=== PATIENT | male | born 1935 | race Caucasian/White ===

== ENCOUNTER → 2019-03-13 | Outpatient (CLI) | payer MEDICARE, BC ==
--- NOTE | 2019-03-13 18:41 | ECHOF ---
Referral Reason:I35.0 MEASUREMENTS -------- HEIGHT: 182.9 cm WEIGHT: 84.8 kg BP: RVIDd: 3.7 cm (< 3.3) IVSd: 1.6 cm (0.6 - 1.1) LVIDd: 5.0 cm (3.9 - 5.3) LVPWd: 1.7 cm (0.6 - 1.1) IVSs: 1.6 cm LVIDs: 3.6 cm LVPWs: 2.0 cm LAESV Index (A-L): 28.02 ml/m Ao Diam: 3.4 cm (2.0 - 3.7) AV Cusp: 1.9 cm (1.5 - 2.6) LA Diam: 3.8 cm (2.7 - 3.8) MV EXCURSION: 20.824 mm (> 18.000) MV EF SLOPE: 205 mm/s (70 - 150) EPSS: 0.9 cm MV E Homero: 0.69 m/s MV DecT: 293 ms MV A Homero: 0.71 m/s MV E/A Ratio: 0.97 RAP: 5.00 mmHg RVSP: 34.67 mmHg FINDINGS -------- Sinus rhythm with extra systolic beats. This was a technically adequate study. The left ventricular size is normal. There is moderate concentric left ventricular hypertrophy. O verall left ventricular systolic function is normal with, an EF between 55 - 60 %. The diastolic fi lling pattern is normal for the age of the patient 9.12. The right ventricle is mildly enlarged. Normal LA size by volume 22+/-6 ml/m2. The right atrium is mildly enlarged. Interatrial and interventricular septum intact. There is no evidence of aortic regurgitation. There is no evidence of aortic stenosis. Mild mitral annular calcification present. There is trace mitral regurgitation. Mild tricuspid regurgitation present. There is no evidence of pulmonary hypertension. The right v entricular systolic pressure, as measured by Doppler, is 34.67mmHg. There is no pulmonic regurgitation present. The aortic root size is normal. The inferior vena cava is mildly dilated. There is no pericardial effusion. CONCLUSIONS -------- 1. Sinus rhythm with extra systolic beats. 2. This was a technically adequate study. 3. The left ventricular size is normal. 4. There is moderate concentric left ventricular hypertrophy. 5. Overall left ventricular systolic function is normal with, an EF between 55 - 60 %. 6. The diastolic filling pattern is normal for the age of the patient 9.12 7. The right ventricle is mildly enlarged. 8. Normal LA size by volume 22+/-6 ml/m2. 9. The right atrium is mildly enlarged. 10. Interatrial and interventricular septum intact. 11. There is no evidence of aortic regurgitation. 12. There is no evidence of aortic stenosis. 13. Mild mitral annular calcification present. 14. There is trace mitral regurgitation. 15. Mild tricuspid regurgitation present. 16. There is no evidence of pulmonary hypertension. 17. The right ventricular systolic pressure, as measured by Doppler, is 34.67mmHg. 18. There is no pulmonic regurgitation present. 19. The aortic root size is normal. 20. The inferior vena cava is mildly dilated. 21. There is no pericardial effusion. CLEANING MATRON: Gabrielle Collier RDCS
== END ==
LOC: RADECHMAIN 12:41
PROVIDERS: ATTEND Internal Medicine
DX: I07.1 Rheumatic tricuspid insufficiency (principal); I70.8 Atherosclerosis of other arteries
CPT/HCPCS: 93306

== ENCOUNTER → 2022-01-22 | Outpatient (CLI) | payer MEDICARE ==
[2022-01-22 10:24] LABS: INR 0.9 (<1.2); Partial Thromboplastin Time 24.7 sec (22.0-30.0); Prothrombin Time 10.4 sec (9.0-12.0)
[2022-01-22 15:26] LABS: HCT 41.7 % (39.6-50.0); HGB 13.9 g/dL (13.0-17.0); MCH 30.7 pg (27.0-32.0); MCHC 33.3 g/dL (32.0-37.0); MCV 92.1 fL (80.0-97.0); NRBC Per 100 WBC 0 /100 WBCS (0.0-0.0); Platelet Count 213 X 10*3/uL (140-440); RBC 4.53 X 10*6/uL (4.40-5.60); RDW 12.5 % (11.5-14.5); WBC 7.06 X 10*3/uL (4.50-10.00)
[2022-01-22 15:54] LABS: BUN/Creat Ratio 20.54 Ratio (12.00-20.00); Globulin 2.8 g/dL (1.6-3.3)
[2022-01-22 15:55] LABS: African American GFR (CKD) 69.5 (60.0-200.0); Albumin 4.1 g/dL (3.8-4.9); Albumin/Globulin Ratio 1.49 (1.60-3.17); Anion Gap 12.5 mmol/L (10.00-18.00); Calcium 9.2 mg/dL (8.7-10.3); Carbon Dioxide 26.8 mmol/L (20.0-27.5); Potassium 3.9 mmol/L (3.5-5.5); Total Bilirubin 0.9 mg/dL (0.30-1.20); Total Protein 6.9 g/dL (6.2-8.2)
[2022-01-22 19:45] LABS: Appearance,Urine Clear (Clear); Bilirubin,Urine Negative (Negative); Blood,Urine Negative (Negative); Color,Urine Yellow (Yellow); Ketones,Urine Trace mg/dL (Negative); Nitrite,Urine Negative (Negative)
[2022-01-22 19:48] LABS: Bacteria,Urine None Seen /HPF (None Seen)
== END | disposition home or self-care (01) ==
LOC: LABPAT 08:26
PROVIDERS: ATTEND Orthopaedic Surgery
DX: Z01.818 Encounter for other preprocedural examination (principal); M16.11 Unilateral primary osteoarthritis, right hip
CPT/HCPCS: 80053; 81001; 85027; 85610; 85730; 87070

== ENCOUNTER 2022-02-03 05:41 | Day surgery (SDC) | payer MEDICARE ==
[~2022-02-03 05:41] MED LIST: ACETAMINOPHEN TAB 500 MG TAB PO PRN; DEXAMETHASONE SOD PHOSPHATE 4 MG/ML 1 ML VIAL IV ONE; GABAPENTIN 300 MG CAP PO PRN; LIDOCAINE 1% (10MG/ML) FOR IV START INTRADERMA PRN; MELOXICAM 7.5 MG TAB PO PRN; ONDANSETRON 4 MG/2 ML VIAL IVP ONE; TRANEXAMIC ACID IN NACL,ISO-OS 1,000 MG in SALINE 1 100ML.BAG IVPB PRN
[2022-02-03] MEDS: LACTATED RINGERS 1,000 ML IV SCH ×2 (06:30→13:56)
[2022-02-03 06:45] LABS: Glucose,Whole Blood 125 mg/dL (70-110)
[2022-02-03] MEDS ORDERED: HYDROmorphone 0.5 MG/0.5 ML SYRINGE IVP PRN ×4 (07:00)
[2022-02-03] MEDS ORDERED: MAGNESIUM HYDROXIDE 2,400 MG/10 ML CUP PO PRN (07:00)
[2022-02-03] MEDS ORDERED: NALOXONE 0.4 MG/ML 1 ML VIAL IV PRN (07:00)
[2022-02-03] MEDS ORDERED: HYDROcodone/APAP 7.5-325MG 1 EACH TAB PO PRN ×2 (07:03)
[2022-02-03] MEDS ORDERED: ROPIVACAINE 5 MG/ML 30 ML VIAL MISCELLANE ONE ×2 (07:34→08:13)
[2022-02-03] MEDS ORDERED: ceFAZolin 1,000 MG in SODIUM CHLORIDE 0.9% 1,000 ML IRRIGATION ONE (08:03)
--- NOTE | 2022-02-03 08:22 | P.OP ---
Date of Procedure: 02/03/22 Preoperative Diagnosis: Severe osteoarthritis right hip Postoperative Diagnosis: Severe osteoarthritis right hip Procedure(s) Performed: Right total hip arthroplasty with a direct anterior approach Implants: [employer] Nephew Polarstem standard size 5 [employer]hew R3, 3 hole hemispherical acetabular shell, 58 mm [employer]hew Reflection 6.5 mm cancellus screw, 25 mm 2 [employer]hew R3, XLPE 20 acetabular liner Sanchez [employer] Nephew Oxinium femoral head 36 m, +4 All components were press-fit. The articulation is Oxinium on polyethylene. Anesthesia: spinal Surgeon: Bowen Trevino Coffee Farmer #1: Yu Briseno Estimated Blood Loss (ml): 350 Pathology: other (Femoral head) Condition: stable Disposition: PACU Indications for Procedure: After failure of conservative treatment we discussed the surgical and nonsurgic al treatment options at length. Patient wishes to proceed with a total hip arthroplasty with a direct anterior approach. Complications specific to this procedure were discussed at length, including but not limited to infection, leg length discrepancy, dislocation, nerve injury, and fracture. Covid-19 was also discussed at length with the patient, and they are aware of the current policies and procedures. The patient was given the option of delaying surgery, but they elect to proceed knowing these risks. Patient is aware of all these complications and informed consent was obtained Operative Findings: The operative findings are consistent with severe osteoarthritis of the right hip Description of Procedure: Patient was seen and evaluated in the preoperative area and the consent was reviewed. The operative site was marked with a skin marker. The patient was then brought to the operating room and given preoperative antibiotics intravenously. 1 g of Tranexamic acid was also given intravenously. A spinal anesthetic was administered by the anesthesia department. The patient was then placed on the [place] table with the bony prominences well-padded. The hip area was then prepped with a ChloraPrep solution and draped in the usual sterile fashion. A universal timeout was then performed, which confirmed the patient's name, surgical site, ALLERGIES, and procedure being performed on the consent. Next the incision site was located at 1 cm distal and 2 cm lateral to the anterior superior iliac spine. The skin and subcutaneous tissues were sharply incised. Incision was carefully dissected down to the fascia overlying the tensor fascia bruce muscle. This fascia was then incised in line with the incision. Care was taken to stay laterally in order to avoid injuring the lateral femoral cutaneous nerve. Next, using blunt finger dissection, the tensor fascia bruce muscle was dissected off its investing fascia. The muscle was then carefully retracted laterally with a cobra retractor over the lateral neck of the femur. Next, the circumflex vessels were identified and cauterized using the AquaMantis device. The anterior hip capsule was then exposed. The capsule was then opened and an inverted T fashion. Cobra retractors were then placed intracapsularly. The retractors were maintained intracapsular throughout the procedure. The proximal femur was then visualized. Fluoroscopic x-rays were then taken in order to evaluate the preoperative leg lengths. A small amount of traction was placed on the leg. The femoral neck was then osteotomized at the appropriate level above the lesser trochanter. A small wedge of bone was then removed from the remaining femoral head. Next, using a corkscrew the femoral head was removed from the acetabulum. On gross visual inspection, the femoral head had complete loss of articular cartilage and multiple periarticular osteophytes. The femoral head was then measured. Attention was then turned to the acetabulum. The acetabulum was exposed and any remaining labrum was excised. Sequential reaming of the acetabulum was performed using fluoroscopic guidance until there was a good bed of bleeding cancellus bone. When the appropriate size was reached, a trial was then placed. The position and fit of the trial was checked with fluoroscopy. The trial was then removed. Then, using fluoroscopic guidance, the final implant was impacted at 20 of anteversion and 40 of abduction, and fully seated in the acetabulum. 2 screws were then placed in the acetabulum. Again fluoroscopy was used to check position of the screws. Next, the liner was then impacted, with a 20 elevated liner located in the anterior superior quadrant. Component locking was confirmed. Attention was then directed to the femur. With the aid of the [place] table, the femur was externally rotated to approximately 130, extended, and adducted under the opposite leg. A side hook was then placed under the proximal femur, and the side hook elevator was used to elevate the proximal femur while releasing the capsule. Retractors were then placed. A capsular release was performed, as well as a release of the conjoined tendon, which afforded excellent visualization of the proximal femur. Next, a box osteotome was used to lateralize the proximal femur. A retail service lead merchandiser was then used to locate the femoral canal. Sequential broaching was then performed with appropriate size which afforded excellent fixation in the proximal femur. A trial was then placed with appropriate head and neck, and the hip was gently reduced with the aid of the [place] table. Fluoroscopy was then used to check position of the components, as well as to ensure equal leg lengths. The hip was then gently di slocated and the trials were then removed. Final implants were then impacted and the hip was again reduced. Final fluoroscopic x-rays confirmed that the components were in anatomic position, as well as equal leg lengths. The hip was also taken through range of motion, and found to be stable. The hip was then copiously irrigated with antibiotic solution with pulsatile lavage. The hip was then irrigated with Irrisept solution. The soft tissues were then injected with a ropivacaine solution. A second dose of 1 g of Tranexamic acid was also given intravenously. The fascia was then closed with 2-0 strata fix suture. The subcutaneous tissue was closed with 3-0 Vicryl. The subcuticular tissue was closed with 3-0 strata fix suture. The skin was then closed with Exofin skin glue. After the glue and dried, and Optifoam silver impregnated dressing was applied. The patient was then transferred to the recovery room in stable condition. The therapy assistant JIM Dow was required due to the complexity of surgery, and the need for skilled bakery assistant for positioning, draping, exposure, retraction, and closure of the wound.
[2022-02-03] MEDS ORDERED: LACTATED RINGERS 1,000 ML IV ONE (08:26)
--- NOTE | 2022-02-03 08:50 | XR ---
EXAMINATION TYPE: XR Hip Limited RT DATE OF EXAM: 02/03/2022 CLINICAL HISTORY: Postoperative evaluation TECHNIQUE: Single portable view of the right hip was submitted. FINDINGS: Noted are changes of total hip arthroplasty with femoral and acetabular components appearin g well seated. Alignment is anatomic. Postsurgical soft tissue changes are evident. IMPRESSION: Satisfactory postoperative alignment
--- NOTE | 2022-02-03 08:57 | FL ---
Fluoroscopy History: RIGHT ANTERIOR HIP 23 sec FL
[2022-02-03] MEDS: SODIUM CHLORIDE 0.9% 1,000 ML IV SCH ×2 (13:55→21:15)
--- NOTE | 2022-02-03 18:03 | P.CONS ---
History of Present Illness - Reason for Consult Consult date: 02/03/22 - History of Present Illness Patient is a 86-year-old female with PMH of hypertension, dyslipidemia, glaucoma, diabetes mellitus that presents to [facility] for elective surgery. He underwent right total hip arthroplasty and is admitted overnight for management of symptoms. [facility], [place] physicians has been consulted for medical management of this patient. Patient reports well-controlled pain in his right hip. Pain is 3 out of 10 in severity. He has been eating comfortably without any issues. He did have some abdominal discomfort and was noted to be retaining urine which required straight cath. He currently denies any headache, lower extremity edema, nausea or vomiting, fever or chills, cough, chest pain, shortness of breath, palpitations. No changes in appetite or weight. He denies any dizziness, numbness/weakness/tingling of the extremities. Review of systems has been performed and is negative except above. General: non toxic, no distress, appears at stated age Derm: warm, dry Head: atraumatic, normocephalic, symmetric Eyes: EOMI, no lid lag, anicteric sclera Mouth: no lip lesion, mucus membranes moist Cardiovascular: S1S2 reg, no murmur Lungs: CTA bilateral, no rhonchi, no rales , no accessory muscle use Abdominal: soft, nontender to palpation, no guarding, no appreciable organomegaly Ext: no gross muscle atrophy, no edema, no contractures Neuro: no focal neuro deficits Psych: Alert, oriented, appropriate affect #Urinary retention with history of BPH #Hypertension #Dyslipidemia #Glaucoma #Diabetes mellitus Patient has been restarted on Flomax. He has been encouraged to ambulate and urinate on his own. Bladder scan and straight cath as needed. BP 142/69. Restart amlodipine and lisinopril. Monitor vitals, adjust medication if necessary. Restart aspirin and Lipitor. Restart Dorzolamide and Latanoprost. Patient has been started on low-dose insulin sliding scale. Continue Accu-Cheks 4 times a day with hypoglycemic precautions. Diabetic diet. DVT prophylaxis: [SCDs, heparin] Discussed with: [Patient] Anticipated discharge: [1-2 days] Anticipated discharge place: [Home with home health] A total of [30] minutes was spent on the care of this complex patient more than 50% of the time was spent in counseling and care coordination. Thank you for this consultation. Please call sound physicians with additional questions or concerns. Past Medical History Past Medical History: Diabetes Mellitus, Eye Disorder, Hyperlipidemia, Hypertension, Prostate Disorder Additional Past Medical History / Comment(s): Glaucoma, enl. prostate. Right hip arthritis History of Any Multi-Drug Resistant Organisms: None Reported Past Surgical History: No Surgical Hx Reported Additional Past Surgical History / Comment(s): Colonoscopy,lithotripsy, cataracts Past Anesthesia/Blood Transfusion Reactions: No Reported Reaction Additional Past Anesthesia/Blood Transfusion Reaction / Comm: HAS NEVER HAD GENERAL ANESTHESIA? Past Psychological History: No Psychological Hx Reported Smoking Status: Never smoker Past Alcohol Use History: Rare Past Drug Use History: None Reported - Past Family History Mother Family Medical History: No Reported History Medications and Allergies Home Medications Medication Instructions Recorded Confirmed Type Aspirin [Adult Low Dose Aspirin EC] 81 mg PO DAILY 08/27/15 02/02/22 History Atorvastatin [Lipitor] 20 mg PO HS 08/27/15 02/02/22 History Dorzolamide HCl [Trusopt 2%] 1 drop LEFT EYE BID 08/27/15 02/02/22 History Latanoprost [Xalatan 0.005%] 1 drop BOTH EYES HS 08/27/15 02/02/22 History lisinopriL [Zestril] 20 mg PO BID 08/27/15 02/02/22 History Insulin NPH Hum/Reg Insulin Hm 11 unit SQ AC-TID 02/02/22 02/02/22 History [Novolin 70-30 100 Unit/ml Vial] Tamsulosin [Flomax] 0.4 mg PO HS 02/02/22 02/02/22 History Vit C/E/Cuperic/Zinc/Lutein 1 cap PO DAILY 02/02/22 02/02/22 History [Preservision Lutein Softgel] amLODIPine [Norvasc] 5 mg PO BID 02/02/22 02/02/22 History Aspirin 325 mg PO BID #60 tab 02/03/22 Rx HYDROcodone/APAP 7.5-325MG [Ocate 1 - 2 tab PO Q6H PRN #32 tab 02/03/22 Rx 7.5-325] Sennosides [Senokot] 2 tab PO DAILY PRN #60 tablet 02/03/22 Rx Allergies Allergy/AdvReac Type Severity Reaction Status Date / Time No Known Allergies Allergy Verified 02/02/22 08:15 Physical Exam Vitals: Vital Signs Temp Pulse Pulse Resp BP Pulse Ox 02/03/22 14:00 97.6 F 77 16 142/69 97 02/03/22 12:05 97.5 F L 77 17 175/78 95 02/03/22 11:30 67 16 135/65 97 02/03/22 11:00 63 16 135/66 97 02/03/22 10:28 63 16 133/69 98 02/03/22 10:05 65 14 132/65 97 02/03/22 09:50 61 14 130/59 96 02/03/22 09:35 72 16 140/67 98 02/03/22 09:20 62 16 137/75 99 02/03/22 09:05 72 16 137/75 92 L 02/03/22 09:04 62 16 145/63 95 02/03/22 08:50 67 16 139/69 96 02/03/22 08:35 97 F L 65 18 134/61 97 02/03/22 06:13 97 F L 78 20 143/65 98 Intake and Output 02/03/22 02/03/22 02/03/22 06:59 14:59 22:59 Intake Total 150 1001 Output Total 350 1800 Balance 150 651 -1800 Intake: IV 150 1001 Output: Urine 1800 Straight 900 Estimated Blood Loss 350 Other: Weight 80.7 kg 80.7 kg Results Labs: Abnormal Lab Results - Last 24 Hours (Table) 02/03/22 Range/Units 06:42 POC Glucose (mg/dL) 125 H (70-110) mg/dL
[2022-02-03 18:40] LABS: Glucose,Whole Blood 404 mg/dL (70-110)
[2022-02-03] MEDS ORDERED: INSULIN ASPART (NovoLOG) 100 UNIT/ML VIAL SQ ONE (18:50)
[2022-02-03 19:58] LABS: Glucose,Whole Blood 356 mg/dL (70-110)
[2022-02-03] MEDS ORDERED: ATORVASTATIN 20 MG TAB PO SCH (21:00)
[2022-02-03] MEDS ORDERED: SENNOSIDES-DOCUSATE SODIUM 1 EACH TAB PO SCH (21:00)
[2022-02-03] MEDS ORDERED: TAMSULOSIN 0.4 MG CAP.ER.24H PO SCH (21:00)
[2022-02-03] MEDS ORDERED: LATANOPROST 0.005% OPHTH DROPS 2.5 ML BTL BOTH EYES SCH (21:00)
[2022-02-03] MEDS: HEPARIN SODIUM,PORCINE/PF 5,000 UNIT/0.5 ML SYRINGE SQ SCH (21:06)
[2022-02-03 21:07] LABS: Glucose,Whole Blood 332 mg/dL (70-110)
[2022-02-03] MEDS: lisinopriL 20 MG TAB PO SCH (21:11)
[2022-02-03] MEDS: amLODIPine 5 MG TAB PO SCH (21:11)
[2022-02-03] MEDS: ASPIRIN 325 MG TAB PO SCH (21:11)
[2022-02-03] MEDS: INSULIN ASPART (NovoLOG) 100 UNIT/ML VIAL SQ SCH (21:12)
[2022-02-03] MEDS: DORZOLAMIDE HCL 2% DROPS 10 ML BTL LEFT EYE SCH (21:15)
[2022-02-04 02:46] VITALS: PULSE 76
[2022-02-04] MEDS: ONDANSETRON 4 MG/2 ML VIAL IVP PRN ×2 (05:16→07:48)
[2022-02-04 06:46] LABS: Glucose,Whole Blood 311 mg/dL (70-110)
[2022-02-04] MEDS: ASPIRIN 325 MG TAB PO SCH (07:48)
[2022-02-04] MEDS: amLODIPine 5 MG TAB PO SCH (07:48)
[2022-02-04] MEDS: lisinopriL 20 MG TAB PO SCH (07:48)
[2022-02-04] MEDS: HEPARIN SODIUM,PORCINE/PF 5,000 UNIT/0.5 ML SYRINGE SQ SCH (07:48)
[2022-02-04] MEDS: INSULIN ASPART (NovoLOG) 100 UNIT/ML VIAL SQ SCH ×2 (07:49→12:27)
[2022-02-04] MEDS: DORZOLAMIDE HCL 2% DROPS 10 ML BTL LEFT EYE SCH (07:49)
[2022-02-04 07:50] VITALS: BP 164/72; RESP 16; TEMP 98
[2022-02-04] MEDS: TAMSULOSIN 0.4 MG CAP.ER.24H PO SCH ×2 (08:49→08:50)
[2022-02-04 09:11] LABS: HCT 34.7 % (39.6-50.0); HGB 11.7 g/dL (13.0-17.0); MCH 30.7 pg (27.0-32.0); MCHC 33.7 g/dL (32.0-37.0); MCV 91.1 fL (80.0-97.0); NRBC Per 100 WBC 0 /100 WBCS (0.0-0.0); Platelet Count 183 X 10*3/uL (140-440); RBC 3.81 X 10*6/uL (4.40-5.60); RDW 12.6 % (11.5-14.5); WBC 14.05 X 10*3/uL (4.50-10.00)
[2022-02-04 09:42] LABS: Basophils # (A) 0.03 X 10*3/uL (0.00-0.10); Basophils % (A) 0.2 %; Eosinophils # (A) 0.01 X 10*3/uL (0.04-0.35); Eosinophils % (A) 0.1 %; Immature Grans, Automated 0.6 %; Lymphocytes # (A) 0.92 X 10*3/uL (0.90-5.00); Lymphocytes % (A) 6.5 %; Monocytes # (A) 1.86 X 10*3/uL (0.20-1.00); Monocytes % (A) 13.2 %; Neutrophils # (A) 11.15 X 10*3/uL (1.80-7.70); Neutrophils % (A) 79.4 %
--- NOTE | 2022-02-04 10:35 | P.DS ---
Providers Expected date of discharge: 02/04/22 Attending physician: Bowen Trevino Consults: 02/03/22 07:00 Consult Physician Routine Consulting Provider: Rosalva Sarmiento Consult Reason/Comments: medical management Do you want consulting provider notified?: Yes 02/04/22 08:36 Consult Physician Urgent Consulting Provider: José Helm Consult Reason/Comments: urinary retention Do you want consulting provider notified?: Yes Primary care physician: Reid Lyn MD Hospital Course: This is an 86-year-old male who has been followed in our office by for continued complaints of right hip pain due to right hip osteoarthritis. Treatment options were discussed, and patient elected to undergo a direct anterior right total hip arthroplasty. Patient was seen pre-operatively by Dr. Ramirez, Dr. Whitney and cleared for surgery. Patient underwent a direct anterior right total hip arthroplasty on 02/03/22. The procedure was performed without complication or sequelae. The patient is doing fairly well postoperatively. Patient did experience urinary retention post-operatively and Dr. Helm was consulted. Vital signs and labs are stable on postoperative day #1. Patient was examined bedside today. Patient states he is overall doing very well and the pain in his right hip is well-controlled. He has been ambulating with a walker with minimal assistance. He has passed physical therapy to return home. Patient is tolerating his breakfast well. He did experience mild nausea this morning which has resolved. Patient is comfortable being discharged home today. Patient denies chest pain, shortness of breath, nausea, vomiting, fevers, chills. On examination, the patient is sitting up in the bed in no apparent distress. He is alert and orientated 3. On inspection of the right hip, there is a clean, dry, intact Optifoam dressing in place. There is no bleeding or drainage the dressing. Patient has good strength and ROM of the right ankle and toes. Motor and sensory function is intact of the right lower extremity. The dorsalis pedis pulse is easily palpable, the right lower extremity is warm and well perfused with brisk capillary refill. Calf is soft and non-tender to palpation. Patient is discharged home with home health in good condition, pending medical clearance. Patient will follow-up with Dr. Trevino in the office in 2 weeks. Please see med rec for accurate list of discharge medication. Plan - Discharge Summary Discharge Rx Participant: No New Discharge Prescriptions: New Sennosides [Senokot] 2 tab PO DAILY PRN #60 tablet PRN Reason: Constipation Aspirin 325 mg PO BID #60 tab HYDROcodone/APAP 7.5-325MG [[place] 7.5-325] 1 - 2 tab PO Q6H PRN #32 tab PRN Reason: Pain No Action Atorvastatin [Lipitor] 20 mg PO HS lisinopriL [Zestril] 20 mg PO BID Latanoprost [Xalatan 0.005%] 1 drop BOTH EYES HS Dorzolamide HCl [Trusopt 2%] 1 drop LEFT EYE BID Aspirin [Adult Low Dose Aspirin EC] 81 mg PO DAILY Tamsulosin [Flomax] 0.4 mg PO HS Insulin NPH Hum/Reg Insulin Hm [Novolin 70-30 100 Unit/ml Vial] 11 unit SQ AC -TID amLODIPine [Norvasc] 5 mg PO BID Vit C/E/Cuperic/Zinc/Lutein [Preservision Lutein Softgel] 1 cap PO DAILY Discharge Medication List Aspirin [Adult Low Dose Aspirin EC] 81 mg PO DAILY 08/27/15 [History] Atorvastatin [Lipitor] 20 mg PO HS 08/27/15 [History] Dorzolamide HCl [Trusopt 2%] 1 drop LEFT EYE BID 08/27/15 [History] Latanoprost [Xalatan 0.005%] 1 drop BOTH EYES HS 08/27/15 [History] lisinopriL [Zestril] 20 mg PO BID 08/27/15 [History] Insulin NPH Hum/Reg Insulin Hm [Novolin 70-30 100 Unit/ml Vial] 11 unit SQ AC- TID 02/02/22 [History] Tamsulosin [Flomax] 0.4 mg PO HS 02/02/22 [History] Vit C/E/Cuperic/Zinc/Lutein [Preservision Lutein Softgel] 1 cap PO DAILY 02/02/22 [History] amLODIPine [Norvasc] 5 mg PO BID 02/02/22 [History] Aspirin 325 mg PO BID #60 tab 02/03/22 [Rx] HYDROcodone/APAP 7.5-325MG [[place] 7.5-325] 1 - 2 tab PO Q6H PRN #32 tab 02/03/22 [Rx] Sennosides [Senokot] 2 tab PO DAILY PRN #60 tablet 02/03/22 [Rx] Follow up Appointment(s)/Referral(s): Residential Home,Health [NON-STAFF] - As Needed Bowen Trevino DO [Doctor of Osteopathic Medicine] - 2 Weeks Activity/Diet/Wound Care/Special Instructions: Weightbearing as tolerated with walker. Leave dressing intact. Dressing may be removed by home care nurse or by patient in 7 days. Then change dressing twice daily until follow up. May shower with initial dressing intact and after removal. If dressing become saturated, please remove. Please take aspirin 325mg twice daily for 30 days to prevent blood clots. Recommend use of compression stockings daily until follow up to help prevent swelling and blood clots. May remove at night before sleeping. Please follow-up with [facility] in 2 weeks and call with any questions or concerns, . Discharge Disposition: HOME WITH HOME HEALTH SERVICES
[2022-02-04 11:07] LABS: Glucose,Whole Blood 339 mg/dL (70-110)
--- NOTE | 2022-02-04 13:19 | P.PN ---
Subjective Progress Note Date: 02/04/22 Patient was seen and examined. No acute events overnight. Patient reports well-controlled pain in his right hip. He had one episode of nausea and vomiting after drinking apple juice this morning. He was able to tolerate eggs. Patient retaining 900 mL of urine. He reports a history of BPH with catheter placement in the past. He used to follow Dr. Rosado. General: non toxic, no distress, appears at stated age Derm: warm, dry Head: atraumatic, normocephalic, symmetric Eyes: EOMI, no lid lag, anicteric sclera Mouth: no lip lesion, mucus membranes moist Cardiovascular: S1S2 reg, no murmur Lungs: CTA bilateral, no rhonchi, no rales , no accessory muscle use Abdominal: soft, nontender to palpation, no guarding, no appreciable organomegaly Ext: no gross muscle atrophy, no edema, no contractures Neuro: no focal neuro deficits Psych: Alert, oriented, appropriate affect #Urinary retention with history of BPH #Leukocytosis #Acute blood loss anemia #Hypertension #Dyslipidemia #Glaucoma #Diabetes mellitus Flomax dose increased to twice a day dosing. Diallo catheter to be inserted. Patient will follow up with urology in the outpatient setting. Leukocytosis likely related to surgery. No signs of active infection. Hemoglobin 11.7. Expected blood loss from surgery. BP 164/72. Continue amlodipine and lisinopril. Monitor vitals, adjust medication if necessary. Continue aspirin and Lipitor. Continue Dorzolamide and Latanoprost. Patient has been started on low-dose insulin sliding scale. Continue Accu-Cheks 4 times a day with hypoglycemic precautions. Diabetic diet. Patient is medically cleared for discharge. Thank you for this consultation. Please call sound physicians with additional questions or concerns. Objective - Vital Signs Vital signs: Vital Signs Temp 98.0 F 02/04/22 07:48 Pulse 76 02/04/22 07:48 Resp 16 02/04/22 07:48 BP 164/72 02/04/22 07:48 Pulse Ox 97 02/04/22 07:48 FiO2 Intake & Output 02/03/22 02/04/22 02/04/22 18:59 06:59 18:59 Intake Total 1001 Output Total 2150 100 Balance -1149 -100 Weight 80.7 kg Intake: IV 1001 Output: Urine 1800 100 Straight 900 Estimated Blood Loss 350 Other: Voiding Method Toilet Toilet # Voids 3 - Labs CBC & Chem 7: 02/04/22 05:36 Labs: Abnormal Lab Results - Last 24 Hours (Table) 02/03/22 02/03/22 02/03/22 Range/Units 18:39 19:56 21:04 WBC (4.50-10.00) X 10*3/uL RBC (4.40-5.60) X 10*6/uL Hgb (13.0-17.0) g/dL Hct (39.6-50.0) % Immature Gran # (0.00-0.04) X 10*3/uL Neutrophils # (1.80-7.70) X 10*3/uL Monocytes # (0.20-1.00) X 10*3/uL Eosinophils # (0.04-0.35) X 10*3/uL POC Glucose (mg/dL) 404 H 356 H 332 H (70-110) mg/dL 02/04/22 02/04/22 02/04/22 Range/Units 05:36 06:45 11:06 WBC 14.05 H (4.50-10.00) X 10*3/uL RBC 3.81 L (4.40-5.60) X 10*6/uL Hgb 11.7 L (13.0-17.0) g/dL Hct 34.7 L (39.6-50.0) % Immature Gran # 0.08 H (0.00-0.04) X 10*3/uL Neutrophils # 11.15 H (1.80-7.70) X 10*3/uL Monocytes # 1.86 H (0.20-1.00) X 10*3/uL Eosinophils # 0.01 L (0.04-0.35) X 10*3/uL POC Glucose (mg/dL) 311 H 339 H (70-110) mg/dL
== END 2022-02-04 13:45 | disposition home health service (06) ==
LOC: OR 05:41 → 4SSUR 08:35 → OR 02-04 13:45
PROVIDERS: ATTEND Orthopaedic Surgery
DX: M16.11 Unilateral primary osteoarthritis, right hip (principal); M25.751 Osteophyte, right hip; M25.551 Pain in right hip; I10 Essential (primary) hypertension; E78.5 Hyperlipidemia, unspecified; M54.9 Dorsalgia, unspecified; E11.9 Type 2 diabetes mellitus without complications; Z79.4 Long term (current) use of insulin; Z79.82 Long term (current) use of aspirin; Z86.69 Personal history of other diseases of the nervous system and sense organs; Z82.49 Family history of ischemic heart disease and other diseases of the circulatory system; Z83.3 Family history of diabetes mellitus; Z86.59 Personal history of other mental and behavioral disorders; Z79.899 Other long term (current) drug therapy
CPT/HCPCS: 27130; 97161; 97166; 86900; 86901; 85025; 86850; 88300; 73501; C1776; J1100; J0690 ×2; J2405 ×2; J2795; J1644

== ENCOUNTER → 2022-03-12 | Outpatient (CLI) | payer MEDICARE ==
--- NOTE | 2022-03-12 10:02 | CT ---
EXAMINATION TYPE: CT pelvis wo con CT DLP: 276.1 mGycm, Automated exposure control for dose reduction was used. DATE OF EXAM: 03/12/2022 9:48 AM COMPARISON: CT abdomen pelvis 12/14/2012. CLINICAL INDICATION:Male, 86 years old with history of R31.0 gross hematuria; Gross hematuria, enlarg ed prostate TECHNIQUE: Standard CT of the pelvis without IV or oral contrast. Lack of IV or oral contrast limit s evaluation of solid and hollow organ viscera. Coronal and sagittal reformats were performed. FINDINGS: LIVER: There are 2 bilobed lobar hypodense lesions identified with the one on the left measuring 1.6 cm (series 3, image 1) and the other in the right hepatic lobe measuring 1.4 centers (series 3, image 6). These are not definitively visualized on prior CT. GALLBLADDER AND BILE DUCTS: Visualized portion is unremarkable. KIDNEYS AND URETERS: No evidence of hydronephrosis. Nonobstructive right 3 mm calculus. Right mid kid laith cyst measuring up to 2.5 cm. Right mid kidney subcentimeter hypodense lesion which is too small t o characterize. BLADDER: Evaluation due to streak artifact from hip prosthesis. There is circumferential wall thicken ing identified. REPRODUCTIVE: Enlarged prostate gland measuring up to 6.4 cm. BOWEL: No focal wall thickening or surrounding inflammatory changes. No evidence of bowel obstruction . PERITONEUM: No evidence of pneumoperitoneum or free fluid. VASCULATURE: Moderate atherosclerotic calcifications are present throughout the abdominal aorta and i ts branches. No evidence of aortic aneurysm within the visualized portion. Multiple color fluid was i dentified. MUSCULOSKELETAL: No acute osseous abnormalities. Postoperative changes right total hip arthroplasty w hich limits evaluation the pelvis. No aggressive osseous lesion. Degenerative changes visualized spin e. LYMPH NODES: No gross evidence for lymphadenopathy. SOFT TISSUE/ABDOMINAL WALL: Tiny fat filled him up hernia. IMPRESSION: 1. Circumferential wall thickening of the urinary bladder within limitations of streak artifact due to right hip prosthesis and lack of IV contrast. Findings may relate to cystitis versus chronic outle t obstruction versus other etiologies. Correlation with urinalysis with consideration for direct visu alization is recommended. 2. Prostatomegaly. 3. Nonobstructive right renal calculus. 4. There are 2 indeterminate hypodense lesions within the visualized liver measuring up to 1.6 cm thea t was not on prior examination 2012. Further evaluation with CT or MR abdomen liver mass protocol is recommended.
== END | disposition home or self-care (01) ==
LOC: RADCTMAIN 09:16
PROVIDERS: ATTEND Urology
DX: N20.0 Calculus of kidney (principal); N40.0 Benign prostatic hyperplasia without lower urinary tract symptoms; Z96.641 Presence of right artificial hip joint
CPT/HCPCS: 72192

== ENCOUNTER → 2022-04-06 | Outpatient (CLI) | payer MEDICARE ==
--- NOTE | 2022-04-08 07:45 | MR ---
EXAMINATION TYPE: MR liver wo/w con DATE OF EXAM: 04/06/2022 6:18 PM INDICATION: Patient age:Male; 86 years old; Reason for study: K76.9 Liver Lesion; Abnormal CT, liver lesion. COMPARISON: CT scan abdomen from 03/12/2022 and 12/14/2012 TECHNIQUE: Multiplanar multi-sequence imaging was performed without contrast. Post contrast imaging was performed. IV Contrast: 8 cc Gadavist FINDINGS: LOWER CHEST: No gross irregularity. ABDOMEN Respiratory motion limits evaluation. Liver: Scattered high T2/intermediate signal lesions (greater than 20) are seen throughout the liver the largest in the left hepatic lobe measuring up to 18 mm and in the right hepatic lobe measuring up to 22 mm. Post contrast imaging the lesions don't definitively demonstrate hyperenhancement and the lesions remain low signal intensity on all phases of imaging compared to background parenchyma. Gallbladder and Bile ducts: Unremarkable. Pancreas: Soft tissue fullness to the pancreatic neck with ill-defined hazy tissue extending towards the superior mesenteric artery. Evaluation limited by motion. Spleen: Unremarkable. Adrenal glands: Unremarkable. Kidneys: High T2 signal renal cysts are seen on the right measuring up to 3.0 cm. Stomach and Bowel: Unremarkable as visualized. Peritoneum: No evidence of pneumoperitoneum, free fluid, or adenopathy. Vasculature: Unremarkable. No aortic aneurysm. Abdominal wall: Unremarkable. Musculoskeletal: The osseous structures appear intact. IMPRESSION: 1. Extensive motion artifact throughout the abdomen limits evaluation there are many (greater than 3 0) hepatic lesions concerning for metastatic disease. Tissue sampling is recommended. 2. Ill-defined hazy soft tissue in the pancreatic head neck region suboptimally evaluated given some motion artifact. Consider CT pancreatic mass protocol for better evaluation of the pancreas includin g the abdomen and pelvis and/or PET/CT.
== END | disposition home or self-care (01) ==
LOC: RADMRIMAIN 17:20
PROVIDERS: ATTEND Internal Medicine
DX: K76.9 Liver disease, unspecified (principal)
CPT/HCPCS: 74183; A9585

== ENCOUNTER 2022-04-27 08:50 | Day surgery (SDC) | payer MEDICARE ==
[2022-04-27 09:24] LABS: Mean Platelet Volume 8.5; Platelet Count 272 k/uL (150-450)
[2022-04-27 09:46] VITALS: BP 141/75; PULSE 68; RESP 16; TEMP 97.9
[2022-04-27 09:53] LABS: INR 1.1 (<1.2); Prothrombin Time 11.7 sec (9.0-12.0)
--- NOTE | 2022-04-27 10:45 | US ---
Ultrasound-guided liver biopsy DATE OF EXAM: 04/27/2022 CLINICAL HISTORY: Liver lesions The procedure was discussed with the patient. The risks, complications, benefits, and alternatives we re discussed and any questions were answered. Informed consent was obtained. Preliminary scanning demonstrated the lesion to be nearly isoechoic to liver with difficulty in visua lization. There is a subtle contour deformity involving the anterior margin of the liver. The case wa s deferred without evidence of safe percutaneous access. IMPRESSION: 1. Deferred percutaneous biopsy of the liver.
== END 2022-04-27 10:58 | disposition home or self-care (01) ==
LOC: RADPROMAIN 08:50
PROVIDERS: ATTEND Internal Medicine
DX: K76.9 Liver disease, unspecified (principal); Z53.8 Procedure and treatment not carried out for other reasons; R16.0 Hepatomegaly, not elsewhere classified
CPT/HCPCS: 36415; 76705; 82947; 85049; 85610

== ENCOUNTER → 2022-06-05 | Outpatient (CLI) | payer MEDICARE ==
[2022-06-05 09:15] LABS: African American GFR (CKD) >90 (>60 ml/min/1.73 sqM); Anion Gap 5 mmol/L; Blood Urea Nitrogen 20 mg/dL (9-20); Calcium 8.3 mg/dL (8.4-10.2); Carbon Dioxide 34 mmol/L (22-30); Chloride 95 mmol/L (98-107); Glucose 152 mg/dL (74-99); Magnesium 1.7 mg/dL (1.6-2.3); Non-African American GFR(CKD) 83 (>60 ml/min/1.73 sqM); Potassium 3.7 mmol/L (3.5-5.1); Sodium 134 mmol/L (137-145)
--- NOTE | 2022-06-07 14:08 | PE ---
EXAMINATION TYPE: PET CT fusion skull to thigh DATE OF EXAM: 06/05/2022 CLINICAL INDICATION:Male, 86 years old with history of R16.0 liver mass; TECHNIQUE: Following the intravenous administration of 10.97 mCi of F-18 FDG, whole body images are performed from the skull base to the midthigh. Images are reviewed on the computer in the coronal, axial, and sagittal planes. Reconstructed rotating images are created on independent workstation and reviewed on the computer. A non-contrast CT is performed in conjunction with the PET scan. Glucose level 134 mg/dL COMPARISON: CT 12/14/2012, PET/CT None, MRI 04/06/2022 FINDINGS: Mediastinal SUV mean is 1.4. Hepatic parenchyma SUV mean is 2.0. SKULL BASE AND NECK: No suspicious radiotracer activity. CHEST, MEDIASTINUM, AND HILAR REGION: * No suspicious radiotracer activity. * Right lower lung 12 x 8 mm pulmonary nodule. No increased radiotracer uptake. ABDOMEN AND PELVIS: * Patchy hepatic uptake with areas of more focal radiotracer uptake max SUV up to 5.3 in the left he patic lobe and 5.1 in the right hepatic lobe near the dome. These correspond with MRI liver lesions * There is a focal area of radiotracer uptake within the suspected area of the lateral left of the s uperior mesenteric artery which is difficult to localize the exact location given paucity of intra-ab dominal fat and atrophic pancreas max SUV 5.2. Measuring up to 1.9 x 1.3 cm compared with prior in 20 13 this likely represents bowel activity. OSSEOUS STRUCTURES: No suspicious radiotracer activity. OTHER CT: Bilaterally aphakia. Atherosclerosis of the carotid bifurcations. Atherosclerosis of the ar terial vasculature and coronary arteries. Dilation of the renal pelvises likely representing extraren al pelves. Trace ascites. The prostate gland is enlarged. Fixation hardware in the right proximal hip appears intact. Multilevel disc degeneration changes are seen throughout the spine. IMPRESSION: Lesions on prior MRI demonstrate increased FDG activity above liver background levels and are concern ing for metastatic disease. There is focal uptake lateral left of the superior mesenteric artery whic h is difficult localize both on prior MRI and noncontrast PET/CT. The pancreas is atrophic dating letha k to 2012 this uptake could be within small bowel.
== END | disposition home or self-care (01) ==
LOC: RADPETMAIN 05-29 09:16
PROVIDERS: ATTEND Internal Medicine
DX: R16.0 Hepatomegaly, not elsewhere classified (principal); K76.9 Liver disease, unspecified
CPT/HCPCS: 80048; 83735; 78815; A9552